=== PATIENT | male | born 1975 | race Caucasian/White ===

== ENCOUNTER 2016-06-29 10:09 | Emergency (ER) | payer MEDICAID, OTHER ==
[~2016-06-29] VITALS: Ht 182.9 cm; Wt 107.3 kg
[2016-06-29] MEDS ORDERED: ONDANSETRON 2MG/ML, 2ML IVPush ONE (10:30)
[2016-06-29] MEDS ORDERED: PIPERACILLIN/TAZO/PMX 3.375GM 50 ML IVPB ONE (10:30)
[2016-06-29] MEDS ORDERED: VANCOMYCIN PER PHARMACY MC ONE (10:30)
[2016-06-29] MEDS ORDERED: SODIUM CHLORIDE 0.9% 1,000ML IVBOLUS ONE (10:30)
[2016-06-29] MEDS ORDERED: morphine SULFATE 10 MG/ML, 1ML IVPush ONE (10:30)
[2016-06-29] MEDS ORDERED: OXYC-229 PO (10:45)
[2016-06-29] MEDS ORDERED: AMOX1TAB62 PO (10:45)
[2016-06-29] MEDS ORDERED: METH500T97 PO (10:45)
[2016-06-29] MEDS ORDERED: VANCOMYCIN 1,800 MG in SODIUM CHLORIDE 0.9% 250 ML IV ONE (11:00)
[2016-06-29 11:14] LABS: HEMOGLOBIN 13.5 g/dL (13.7-18.0)
[2016-06-29] MEDS ORDERED: ONDANSETRON 2MG/ML, 2ML ONE (11:21)
[2016-06-29] MEDS ORDERED: MORPHINE SULFATE 4 MG/ML, 1ML ONE (11:21)
[2016-06-29 11:27] LABS: ASPARTATE AMINO TRANSFERASE 21 U/L (15-37); BLOOD UREA NITROGEN 10 mg/dL (7-18)
[2016-06-29 11:31] LABS: DIFF TOTAL CELLS COUNTED 100 CELL DIFF
[2016-06-29 11:37] LABS: VERIFY COUNTS? YES
[2016-06-29] MEDS ORDERED: PIPERACILLIN/TAZO/PMX 3.375GM 50 ML ONE (12:41)
[2016-06-29] MEDS ORDERED: DIPHENHYDRAMINE 50 MG/ML, 1ML ONE (13:06)
[2016-06-29] MEDS ORDERED: DIPHENHYDRAMINE 50 MG/ML, 1ML IVPush ONE (14:00)
[2016-06-29 14:13] VITALS: BP 125/70
== END 2016-06-29 14:17 | disposition home or self-care (01) ==
LOC: ED 11:35
DX: L03.113 Cellulitis of right upper limb (principal)
CPT/HCPCS: 36415; 73130; 80053; 83605; 84145; 85025; 87040; 96365; 96366; 96368; 96375; 99285; J1200; J2270; J2405; J2543; J3370; J7030; J7050